=== PATIENT | female | born 1965 | race Caucasian/White ===

== ENCOUNTER 2022-01-31 09:45 | Outpatient (RCR) | payer BC, SELFPAY | END 2022-04-04 16:50 | disposition home or self-care (01) | PROVIDERS: PCP Family Medicine; Visit Provider Family Medicine | DX: M54.50 Low back pain, unspecified (principal); Z51.89 Encounter for other specified aftercare | CPT/HCPCS: 97110; 97161 ==

== ENCOUNTER 2022-12-01 10:00 | Outpatient (RCR) | payer BC, SELFPAY | END 2023-01-09 14:27 | disposition home or self-care (01) | PROVIDERS: PCP Family Medicine; Visit Provider Family Medicine | DX: M25.511 Pain in right shoulder (principal); G89.29 Other chronic pain; M54.2 Cervicalgia; Z51.89 Encounter for other specified aftercare | CPT/HCPCS: 97110; 97140; 97161 ==

== ENCOUNTER 2022-12-16 10:34 | Outpatient (CLI) | payer BC, SELFPAY | END 2022-12-16 10:35 | disposition home or self-care (01) | LOC: NFLDREF 12-19 12:44 | PROVIDERS: PCP Family Medicine; Referring Provider Family Medicine; Visit Provider Physician Assistant | DX: R30.0 Dysuria (principal); N39.0 Urinary tract infection, site not specified | CPT/HCPCS: 87086 ==

== ENCOUNTER 2024-10-05 09:47 | Outpatient (CLI) | payer BC, SELFPAY | END 2024-10-05 09:48 | disposition home or self-care (01) | LOC: NFLDREF 10-08 15:17 | PROVIDERS: PCP Family Medicine; Referring Provider Family Medicine; Visit Provider Nurse Practitioner Family | DX: N30.90 Cystitis, unspecified without hematuria (principal); B96.1 Klebsiella pneumoniae [K. pneumoniae] as the cause of diseases classified elsewhere | CPT/HCPCS: 87086 ==